=== PATIENT | female | born 1995 | race Two or more races ===

== ENCOUNTER 2016-04-23 21:09 | Inpatient (IN) | payer MEDICAID, OTHER ==
[~2016-04-23] VITALS: Ht 157.5 cm; Wt 52.8 kg
[2016-04-23 21:57] LABS: Urine Bilirubin Negative (Negative); Urine Blood Negative /uL (Negative); Urine Color Yellow (Yellow); Urine Glucose Normal (Normal); Urine Ketone Negative (Negative); Urine Mucus FEW (None Seen); Urine Nitrite Negative (Negative); Urine RBC 1 /hpf (0 - 4); Urine Squamous Epithelial Cell FEW /hpf (<5); Urine Urobilinogen Normal (Negative)
[2016-04-23 22:01] LABS: INR 1.07 (0.9-1.15); Partial Thromboplastin Time 22.9 sec (22.64-33.71)
[2016-04-23 22:03] LABS: Basophils # (auto) 0 uL; Basophils % (auto) 0.1 % (0.0-2.0); Eosinophils # (auto) 0 uL; Hematocrit 40.3 % (36.0-46.0); Hemoglobin 13.6 g/dL (12.2-16.2); Lymphocytes # (auto) 1.6 uL; Lymphocytes % (auto) 6.7 % (10.0-50.0); Mean Corpuscular Hgb Conc. 33.7 g/dL (32.0-36.0); Mean Platelet Volume 9.1 fL (7.4-10.4); Monocytes # (auto) 1.2 uL; Monocytes % (auto) 5.1 % (0.0-12.0); Neutrophils % (auto) 88.1 % (37.0-80.0); Platelet Count (auto) 380 10^3/uL (140-450); Red Cell Distribution Width 12.6 % (11.6-16.0); White Blood Cell 23.8 10^3/uL (4.4-10.8)
[2016-04-23 22:21] LABS: Albumin 4.5 g/dL (3.4-5.0); BUN/Creatinine Ratio 18.2; Calcium 8.9 mg/dL (8.5-10.1); Potassium 3.5 mmol/L (3.5-5.1)
[2016-04-23 22:23] LABS: Bilirubin, Total 1.5 mg/dL (0.2-1.0)
[2016-04-23] MEDS ORDERED: SODIUM CHLORIDE 0.9% 1,000 ML IV ONE (23:15)
[2016-04-23] MEDS ORDERED: cefTRIAXone 1GM/50ML D5W 50 ML IV ONE (23:15)
[2016-04-23] MEDS ORDERED: MORPHINE SULF INJ 2 MG/ML SYRINGE 1ML IV ONE (23:45)
[2016-04-23] MEDS ORDERED: ONDANSETRON HCL 4 MG/2 ML VIAL IV ONE (23:45)
[2016-04-24] MEDS ORDERED: KETOROLAC TROMETH 60MG/2ML VIAL IM ONE (08:35)
[2016-04-24] MEDS ORDERED: ONDANSETRON HCL 4 MG/2 ML VIAL ONE (08:35)
[2016-04-24] MEDS ORDERED: fentaNYL CITRATE 100 MCG/2 ML VL ONE ×2 (08:35→09:16)
[2016-04-24] MEDS ORDERED: DEXAMETHASONE SOD PHOS 10MG/1ML VIAL INJ ONE (08:35)
[2016-04-24] MEDS ORDERED: MIDAZOLAM HCL 1MG/1ML-2 ML VIAL ONE (08:35)
[2016-04-24] MEDS ORDERED: ROCURONIUM 10MG/ML 10ML VIAL IV ONE (08:37)
[2016-04-24] MEDS ORDERED: cefTRIAXone SOD 1,000 MG VL ONE (08:38)
[2016-04-24] MEDS ORDERED: ceFAZolin 1GM VL ONE (08:57)
[2016-04-24] MEDS ORDERED: BUPIVACAINE 0.25% INJ 50ML VIAL ONE (08:58)
[2016-04-24] MEDS ORDERED: GLYCOPYRROLATE 0.2 MG/ML 1ML VIAL ONE (09:26)
[2016-04-24] MEDS ORDERED: NEOSTIGMINE 1 MG/ML INJ (10mg/10ML VIAL) ONE (09:26)
[2016-04-24] MEDS ORDERED: BUPIVACAINE 0.25% INJ 50ML VIAL IJ ONE (09:30)
[2016-04-24] MEDS ORDERED: MORPHINE SULF INJ 2 MG/ML SYRINGE 1ML IV PRN (09:45)
[2016-04-24] MEDS ORDERED: ONDANSETRON HCL 4 MG/2 ML VIAL IV PRN (09:45)
[2016-04-24] MEDS ORDERED: HYDROmorphone HCL 2 MG/ML VL IV PRN (10:00)
[2016-04-24] MEDS ORDERED: ONDANSETRON HCL 4 MG/2 ML VIAL IV ONE (10:00)
[2016-04-24 11:15] VITALS: BP 106/58
[2016-04-24 13:00] VITALS: BP 106/58
[2016-04-24] MEDS: D5W/SOD CHL 0.45%/KCL 20MEQ 1,000 ML IV SCH ×2 (13:00→22:08)
[2016-04-24] MEDS: ACETAMINOPHEN/CODEINE#3 (300/30mg) TAB PO PRN ×2 (13:22→22:08)
[2016-04-24 17:00] VITALS: BP 101/75
[2016-04-24 22:07] VITALS: BP 104/63
[2016-04-25 05:00] VITALS: BP 95/57
[2016-04-25 07:04] LABS: BUN/Creatinine Ratio 14.3; Calcium 8.7 mg/dL (8.5-10.1)
[2016-04-25 07:19] LABS: Basophils # (auto) 0 uL; Basophils % (auto) 0.2 % (0.0-2.0); Eosinophils # (auto) 0 uL; Hematocrit 33.3 % (36.0-46.0); Hemoglobin 10.9 g/dL (12.2-16.2); Lymphocytes # (auto) 1.8 uL; Lymphocytes % (auto) 11.6 % (10.0-50.0); Mean Corpuscular Hemoglobin 31.6 pg (28.0-32.0); Mean Corpuscular Hgb Conc. 32.5 g/dL (32.0-36.0); Mean Corpuscular Volume 97.2 fL (80.0-100.0); Mean Platelet Volume 9.5 fL (7.4-10.4); Monocytes # (auto) 1.1 uL; Monocytes % (auto) 6.8 % (0.0-12.0); Neutrophils # (auto) 12.9 uL; Neutrophils % (auto) 81.4 % (37.0-80.0); Platelet Count (auto) 268 10^3/uL (140-450); Red Cell Distribution Width 12.6 % (11.6-16.0); White Blood Cell 15.8 10^3/uL (4.4-10.8)
[2016-04-25 09:00] VITALS: BP 96/37
[2016-04-25 09:10] LABS: Potassium 3.9 mmol/L (3.5-5.1)
[2016-04-25] MEDS: ACETAMINOPHEN/CODEINE#3 (300/30mg) TAB PO PRN (10:34)
[2016-04-25 12:20] VITALS: BP 110/66
[2016-04-25 13:00] VITALS: BP 110/66
== END 2016-04-25 13:30 | disposition home or self-care (01) | DRG 225 ==
LOC: ER 21:16 → OVERFLOW 21:17 → WEST WING 04-24 11:27
PROVIDERS: ADMIT Surgery; ATTEND Internal Medicine
PROC: 0W9J3ZZ Drainage of Pelvic Cavity, Percutaneous Approach (ICD-10-PCS; 2016-04-24)
PROC: 0DTJ4ZZ Resection of Appendix, Percutaneous Endoscopic Approach (ICD-10-PCS; principal; 2016-04-24 08:46)
DX: K35.3 Acute appendicitis with localized peritonitis (principal); N30.01 Acute cystitis with hematuria; K38.1 Appendicular concretions; N73.9 Female pelvic inflammatory disease, unspecified
CPT/HCPCS: 36415; 74176; 80048; 80053; 81001; 81025; 82150; 83690; 85025; 85610; 85730; 86850; 86900; 86901; 96365; 96375; J0690; J0696; J1100; J1885; J2250; J2405; J3490